=== PATIENT | male | born 1955 | race Caucasian/White ===

== ENCOUNTER 2017-05-26 13:52 | Outpatient (CLI) | payer OTHER ==
--- NOTE | 2017-05-26 16:18 | MRI Report ---
EXAM: LEFT KNEE MRI WITHOUT CONTRAST EXAM DATE: 05/26/2017 02:51 PM. CLINICAL HISTORY: Chronic left knee pain. COMPARISON: None. TECHNIQUE: Multiplanar, multisequence T1-weighted and fluid-sensitive sequences of the knee without c ontrast. Other: None. FINDINGS: Many of the images are degraded due to patient related motion artifact. By report, the patient had mu scle spasms during the exam. Bones and Articular Cartilage: Grade 3-4 chondromalacia at the medial femoral condyle and medial tibi al plateau. Grade 3-4 chondromalacia at the posterior aspect of the lateral tibial plateau and centra l to posterior aspect of the lateral femoral condyle. Grade 3 chondromalacia of the femoral trochlear groove. No patellar subluxation. No acute fracture or bone lesions. Medial Meniscus: Flap tear with oblique component at the inner to middle thirds of the posterior horn (sagittal images 22-23 and coronal image 21). Lateral Meniscus: Focal radial tear at the inner third of the lateral meniscal body (coronal image 18 ). Cruciate Ligaments: The anterior and posterior cruciate ligaments are intact. Collateral Ligaments: The medial collateral and lateral collateral ligamentous structures are intact. Tendons: The quadriceps, patellar, semimembranosus, and popliteus tendons are unremarkable. Musculature: No edema or fatty atrophy. Other: Small to moderate-sized joint effusion. Moderate-sized 8.7 x 2.3 x 3.7 cm multiseptated poplit eal cyst. There is an approximately 1.7 x 0.6 x 1.7 cm focus of heterogeneous tissue anterior to the articular surface of the femoral trochlear groove (sagittal images 15-18, axial images 14-18, and cor onal images 7-8). The medial and lateral retinacula are intact. The subcutaneous tissues and fat pad s are unremarkable. IMPRESSION: 1. Slightly technically limited exam due to patient-related motion artifact. 2. Tricompartmental chondromalacia. 3. Flap tear with oblique component at the inner and middle thirds of the posterior horn medial menis cus. 4. Focal radial tear at the inner third of the lateral meniscal body. 5. [id number] size joint effusion. 6. Moderate-sized multiseptated popliteal cyst. 7. An approximately 1.7 x 0.6 x 1.7 cm focus of heterogeneous tissue anterior to the femoral trochlea r groove. Differential may include, but is not limited to, pigmented nodular synovitis, proliferation of fibrocartilaginous tissue, a loose body. A neoplastic process cannot be entirely excluded. If war ranted, further characterization of the tissue with follow-up T1-weighted precontrast and postcontras t MR imaging may be helpful. [facility]CULOSKE[facility] SECTION Referring Provider Line: [phone] SITE ID: [id number]
== END 2017-05-26 13:53 | disposition home or self-care (01) ==
LOC: DI 13:52
PROVIDERS: ATTEND Family Medicine
DX: M94.262 Chondromalacia, left knee (principal); S83.242A Other tear of medial meniscus, current injury, left knee, initial encounter; S83.282A Other tear of lateral meniscus, current injury, left knee, initial encounter; M25.462 Effusion, left knee; M71.22 Synovial cyst of popliteal space [Baker], left knee

== ENCOUNTER 2017-07-17 14:00 | Outpatient (CLI) | payer OTHER ==
[~2017-07-17 14:00] MED LIST: GADOBUTROL 10 MMOL/10 ML VIAL ONE
[2017-07-17] MEDS ORDERED: GADOBUTROL 10 MMOL/10 ML VIAL IVP ONE (15:15)
--- NOTE | 2017-07-18 15:44 | MRI Report ---
EXAM: LEFT KNEE MRI WITHOUT AND WITH CONTRAST EXAM DATE: 07/17/2017 03:40 PM. CLINICAL HISTORY: Pain in left knee. COMPARISON: 05/26/2017. TECHNIQUE: Multiplanar, multisequence T1-weighted and fluid-sensitive sequences of the knee before an d after administration of intravenous contrast. IV contrast: 10 mL Gadavist. Other: None. FINDINGS: Bones: Small osteophytes in all 3 compartments. No fracture or marrow edema. No abnormal marrow enhan cement. Articular Cartilage: Grade 3 chondromalacia medial compartment, stable. Patchy grade 2 chondromalacia lateral compartment. Stable chondromalacia of the medial trochlear groove. Medial Meniscus: Again seen is a small radial tear of the posterior horn medial meniscus. Lateral Meniscus: The lateral meniscus is intact. Cruciate Ligaments: The anterior and posterior cruciate ligaments are intact. Collateral Ligaments: The medial collateral and lateral collateral ligamentous structures are intact. Tendons: The quadriceps, patellar, semimembranosus, and popliteus tendons are unremarkable. Musculature: No edema or fatty atrophy. Other: Again seen is a joint effusion with synovial enhancement and hypertrophy. The previous ill-def ined soft tissue lesion in the inferior femoral trochlear groove has resolved and was likely inflamma tory. Popliteal fossa cyst has decreased in size and measures 6 cm craniocaudal dimension. IMPRESSION: 1. Mild to moderate 3 compartment degenerative joint disease. 2. Synovitis and popliteal fossa cyst. 3. Previous soft tissue mass inferior femoral trochlear groove has resolved and was presumably inflam matory. 4. Stable small posterior horn medial meniscal tear. [facility] MUSCULOSKELETAL RADIOLOGY SECTION Referring Provider Line: [phone] SITE ID: [id number]
== END 2017-07-17 14:01 | disposition home or self-care (01) ==
LOC: DI 14:00
PROVIDERS: ATTEND Orthopaedic Surgery
DX: M17.12 Unilateral primary osteoarthritis, left knee (principal); M71.22 Synovial cyst of popliteal space [Baker], left knee; M65.862 Other synovitis and tenosynovitis, left lower leg; S83.242A Other tear of medial meniscus, current injury, left knee, initial encounter
CPT/HCPCS: 73723; A9585

== ENCOUNTER 2018-01-04 07:37 | Outpatient (CLI) | payer OTHER ==
--- NOTE | 2018-01-04 16:01 | MRI Report ---
Reason: CERVICALGIA Procedure Date: 01/04/2018 Accession Number: [id number] / [id number] Procedure: MRI - Cervical Spine W/O CPT Code: FULL RESULT: EXAM: MRI CERVICAL SPINE WITHOUT CONTRAST EXAM DATE: 01/04/2018 08:22 AM. CLINICAL HISTORY: Cervicalgia. Arm numbness. COMPARISONS: None. TECHNIQUE: Multiplanar, multisequence T1-weighted and fluid-sensitive sequences of the cervical spine without contrast. Other: None. FINDINGS: Neurologic Structures: The visualized posterior fossa structures are unremarkable. There is a 1.1 cm superior to inferior by 0.2 cm AP by 0.2 cm medial to lateral T2 hyperintense focus within the right side of the cervical spinal cord at the C5-C6 and C6 levels. Alignment: No scoliosis or spondylolisthesis. Bone Marrow: No gross fractures or bone lesions. No marrow edema. Interspace Levels/Facets: The craniocervical junction is unremarkable. C1-C2: Unremarkable. C2-C3: Ankylosis and mild to moderate hypertrophy at the left facet joint. Mild left foraminal stenosis. C3-C4: Mild to moderate left facet arthropathy. Left-sided uncovertebral joint osteophytes. Moderate-sized anterior osteophytes. No canal stenosis. Severe left and mild right foraminal stenoses. C4-C5: Moderate left foraminal stenosis. Mild left facet arthropathy. C5-C6: Bony fusion between the C5 and C6 vertebral bodies. Small posterior right paracentral and right foraminal osteophytes. Mild canal stenosis. Severe foraminal stenoses. C6-C7: Small to moderate sized posterior central to left paracentral disk extrusion. Moderate ligamentum flavum thickening. Moderate canal stenosis and cord impingement. Severe foraminal stenoses. C7-T1: Minimal disk bulge. No stenoses. Musculature: Normal. No edema or fatty atrophy. Other: The paravertebral and prevertebral soft tissues are normal. IMPRESSION: 1. Multilevel degenerative disk changes, facet arthropathy, and osteophytosis. The most significant level is at C6-C7. 2. Small to moderate sized posterior central to left paracentral disk extrusion at C6-C7. Moderate canal stenosis and cord impingement. Severe foraminal stenoses. There is a T2 hyperintense focus within the right side of the cervical spinal cord at the C5-C6 and C6 levels which may represent myelomalacia or edema. 3. Bony fusion between the C5 and C6 vertebral bodies. Mild canal and severe foraminal stenoses. 4. Moderate left foraminal stenosis at C4-C5. 5. Severe left and mild right foraminal stenoses at C3-C4. [facility]
== END 2018-01-04 07:38 | disposition home or self-care (01) ==
LOC: DI 07:37
PROVIDERS: ATTEND Family Medicine
DX: M47.892 Other spondylosis, cervical region (principal); M50.30 Other cervical disc degeneration, unspecified cervical region; M50.223 Other cervical disc displacement at C6-C7 level; M43.22 Fusion of spine, cervical region; M48.02 Spinal stenosis, cervical region
CPT/HCPCS: 72141